=== PATIENT | female | born 1980 | race African-American/Black ===

== ENCOUNTER → 2022-08-12 | Outpatient (CLI) | payer BC | LOC: MAMMO 12:24 | PROVIDERS: ATTEND Obstetrics & Gynecology | DX: Z12.31 Encounter for screening mammogram for malignant neoplasm of breast (principal) | CPT/HCPCS: 77067 ==

== ENCOUNTER → 2022-11-11 | Outpatient (CLI) | payer BC | LOC: MAMMO 09:03 | PROVIDERS: ATTEND Obstetrics & Gynecology | DX: R92.2 Inconclusive mammogram (principal) ==